=== PATIENT | male | born 1955 | race Caucasian/White ===

== ENCOUNTER → 2022-04-03 | Outpatient (CLI) | payer OTHER ==
--- NOTE | 2022-04-04 14:08 | MR ---
EXAMINATION TYPE: MR lumbar spine wo con DATE OF EXAM: 04/03/2022 11:41 AM COMPARISON: None. CLINICAL INDICATION:Male, 67 years old with history of radiculopathy; TECHNIQUE: Multi planar, multi sequence imaging was performed utilizing: T1-weighted, T2-weighted, a nd turbo inversion recovery imaging of the lumbar spine. IV Contrast: None FINDINGS: Alignment: The lumbar vertebral bodies have preserved heights with grade 1 anterolisthesis of L4 on L 5. Cord: The conus medullaris and the distal spinal cord appear unremarkable with regards to their signa l intensity and morphology. Bones/Discs: Bone signal is within normal limits. Multilevel degenerative disc disease is noted and most pronounced at the L4-L5 with edema around the facet joints bilaterally.. L1-L2: Disc bulge with facet joint arthropathy result in mild to moderate spinal canal and mild bilat eral neural foraminal stenosis. L2-L3: Disc bulge with facet joint arthropathy result in mild to moderate spinal canal and mild bilat eral neural foraminal stenosis. L3-L4: Disc bulge with facet joint arthropathy result in mild to moderate spinal canal and mild bilat eral neural foraminal stenosis. L4-L5: Disc uncovering from grade 1 anterolisthesis with bulging and facet joint arthropathy result i n severe spinal canal stenosis with cauda equina bunching. There is moderate bilateral neural foramin al stenosis. L5-S1: Disc bulge and facet joint arthropathy result in no significant spinal canal stenosis there is moderate bilateral neural foraminal stenosis. Other findings: None. IMPRESSION: 1. L4-L5 severe spinal canal stenosis secondary to disc uncovering from grade 1 anterolisthesis and facet joint arthropathy. Additional moderate bilateral neural foraminal stenosis at this level. 2. Multilevel disc degeneration with associated osteoarthritic changes.
== END | disposition home or self-care (01) ==
LOC: RADMRIMAIN 10:38
PROVIDERS: ATTEND Family Medicine
DX: M48.062 Spinal stenosis, lumbar region with neurogenic claudication (principal); M43.16 Spondylolisthesis, lumbar region; M51.16 Intervertebral disc disorders with radiculopathy, lumbar region; M47.26 Other spondylosis with radiculopathy, lumbar region; M99.73 Connective tissue and disc stenosis of intervertebral foramina of lumbar region
CPT/HCPCS: 72148